=== PATIENT | male | born 1990 | race Caucasian/White ===

== ENCOUNTER 2016-11-10 08:51 | Emergency (ER) | payer OTHER ==
[~2016-11-10] VITALS: Ht 185.4 cm; Wt 104.3 kg
[~2016-11-10 08:51] MED LIST: CATAPRES-TTS 10.1 MG PO; ZOFRAN ODT4 MG SL
[2016-11-10] MEDS ORDERED: NAPROSYN500 MG PO (09:10)
== END 2016-11-10 10:10 | disposition home or self-care (01) ==
LOC: ED 08:51
DX: S93.402A Sprain of unspecified ligament of left ankle, initial encounter (principal); R03.0 Elevated blood-pressure reading, without diagnosis of hypertension; M79.672 Pain in left foot; F17.200 Nicotine dependence, unspecified, uncomplicated; Z88.6 Allergy status to analgesic agent; X58.XXXA Exposure to other specified factors, initial encounter; Y93.51 Activity, roller skating (inline) and skateboarding; Y92.331 Roller skating rink as the place of occurrence of the external cause; Y99.8 Other external cause status